=== PATIENT | female | born 1935 | race Caucasian/White ===

== ENCOUNTER 2019-01-29 13:22 | Emergency (ER) | payer OTHER ==
[~2019-01-29] VITALS: Ht 152.4 cm; Wt 63.5 kg
[2019-01-29] MEDS ORDERED: GLIMEPIRIDE4 MG (13:47)
[2019-01-29] MEDS ORDERED: ATORVASTATIN CA10 MG (13:48)
[2019-01-29] MEDS ORDERED: AMLODIPINE-OLM1 EAC2 (13:48)
[2019-01-29] MEDS ORDERED: ZESTRIL10 M1 (13:48)
== END 2019-01-30 00:14 | disposition home or self-care (01) ==
LOC: ER 13:22
DX: E87.1 Hypo-osmolality and hyponatremia (principal)

== ENCOUNTER 2019-07-09 15:34 | Emergency (ER) | payer OTHER ==
[~2019-07-09] VITALS: Ht 152.4 cm; Wt 54.4 kg
[~2019-07-09 15:34] MED LIST: AMLODIPINE-OLM1 EAC2; ATORVASTATIN CA10 MG; GLIMEPIRIDE4 MG; ZESTRIL10 M1
== END 2019-07-09 22:06 | disposition home or self-care (01) ==
LOC: ER 15:34
DX: S42.252A Displaced fracture of greater tuberosity of left humerus, initial encounter for closed fracture (principal); W18.39XA Other fall on same level, initial encounter; Y93.89 Activity, other specified; Y92.098 Other place in other non-institutional residence as the place of occurrence of the external cause; Y99.8 Other external cause status; E11.649 Type 2 diabetes mellitus with hypoglycemia without coma

== ENCOUNTER 2019-08-08 14:17 | Inpatient (IN) | payer OTHER ==
[~2019-08-08] VITALS: Ht 147.3 cm; Wt 49.9 kg
[2019-08-16] MEDS ORDERED: ATORVASTATIN CA10 MG PO (14:04)
[2019-08-16] MEDS ORDERED: LISINOPRIL10 MG PO (14:04)
[2019-08-16] MEDS ORDERED: VANCOMYCIN HCL125 MG PO (14:04)
[2019-08-16] MEDS ORDERED: INTESTINEX680 M1 PO (14:04)
[2019-08-16] MEDS ORDERED: CLONAZEPAM0.5 MG PO (14:04)
[2019-08-16] MEDS ORDERED: AMLODIPINE BESY10 MG PO (14:04)
[2019-08-16] MEDS ORDERED: GABAPENTIN300 MG PO (22:34)
== END 2019-08-16 16:37 | disposition home or self-care (01) | DRG 641 ==
LOC: ER 14:17 → SEC-K 22:41 → SURG 22:41
PROVIDERS: ADMIT Internal Medicine; ATTEND Internal Medicine
PROC: BW21ZZZ Computerized Tomography (CT Scan) of Abdomen and Pelvis (ICD-10-PCS; principal; 2019-08-08)
PROC: 8E0ZXY6 Isolation (ICD-10-PCS; 2019-08-08)
PROC: BP29ZZZ Computerized Tomography (CT Scan) of Left Shoulder (ICD-10-PCS; 2019-08-12)
DX: E87.1 Hypo-osmolality and hyponatremia (principal); S42.292A Other displaced fracture of upper end of left humerus, initial encounter for closed fracture; R65.10 Systemic inflammatory response syndrome (SIRS) of non-infectious origin without acute organ dysfunction; E86.0 Dehydration; J11.1 Influenza due to unidentified influenza virus with other respiratory manifestations; M62.58 Muscle wasting and atrophy, not elsewhere classified, other site; K44.9 Diaphragmatic hernia without obstruction or gangrene; E11.65 Type 2 diabetes mellitus with hyperglycemia; Z79.4 Long term (current) use of insulin

== ENCOUNTER 2019-08-29 10:41 | Inpatient (IN) | payer OTHER ==
[~2019-08-29] VITALS: Ht 157.5 cm; Wt 63.5 kg
[~2019-08-29 10:41] MED LIST changes: +AMLODIPINE BESY10 MG PO; +ATORVASTATIN CA10 MG PO; +CLONAZEPAM0.5 MG PO; +GABAPENTIN300 MG PO; +INTESTINEX680 M1 PO; +LISINOPRIL10 MG PO; +VANCOMYCIN HCL125 MG PO
[2019-08-29] MEDS ORDERED: NORVASC5 MG (10:49)
[2019-08-29] MEDS ORDERED: METFORMIN HCL500 M3 (10:50)
== END 2019-09-01 13:23 | disposition home or self-care (01) | DRG 638 ==
LOC: ER 10:41 → MEDI 20:03
PROVIDERS: ADMIT Internal Medicine; ATTEND Internal Medicine
DX: E11.649 Type 2 diabetes mellitus with hypoglycemia without coma (principal); E87.1 Hypo-osmolality and hyponatremia; I10 Essential (primary) hypertension; E11.42 Type 2 diabetes mellitus with diabetic polyneuropathy; E78.49 Other hyperlipidemia; D64.9 Anemia, unspecified; E86.0 Dehydration

== ENCOUNTER 2019-09-12 22:35 | Inpatient (IN) | payer OTHER ==
[~2019-09-12] VITALS: Ht 157.5 cm; Wt 63.5 kg
[~2019-09-12 22:35] MED LIST changes: +METFORMIN HCL500 M3; +NORVASC5 MG
== END 2019-09-21 17:52 | disposition home or self-care (01) | DRG 638 ==
LOC: ER 22:35 → SEC-K 09-13 14:16 → MEDI 09-13 14:16 → MEDJ 09-13 15:23 → MEDI 09-14 16:03 → MEDJ 09-15 12:56 → SURH 09-19 13:38
PROVIDERS: ADMIT Internal Medicine; ATTEND Internal Medicine
PROC: 30233N1 Transfusion of Nonautologous Red Blood Cells into Peripheral Vein, Percutaneous Approach (ICD-10-PCS; principal; 2019-09-20)
DX: E11.649 Type 2 diabetes mellitus with hypoglycemia without coma (principal); N39.0 Urinary tract infection, site not specified; E87.1 Hypo-osmolality and hyponatremia; R65.10 Systemic inflammatory response syndrome (SIRS) of non-infectious origin without acute organ dysfunction; E11.22 Type 2 diabetes mellitus with diabetic chronic kidney disease; E11.42 Type 2 diabetes mellitus with diabetic polyneuropathy; E86.0 Dehydration; I10 Essential (primary) hypertension; B96.89 Other specified bacterial agents as the cause of diseases classified elsewhere; D64.9 Anemia, unspecified; F41.9 Anxiety disorder, unspecified; E78.49 Other hyperlipidemia; K52.9 Noninfective gastroenteritis and colitis, unspecified; I12.9 Hypertensive chronic kidney disease with stage 1 through stage 4 chronic kidney disease, or unspecified chronic kidney disease; N18.2 Chronic kidney disease, stage 2 (mild); N17.9 Acute kidney failure, unspecified; Z79.84 Long term (current) use of oral hypoglycemic drugs

== ENCOUNTER 2019-09-23 17:04 | Inpatient (IN) | payer OTHER ==
[~2019-09-23] VITALS: Ht 152.4 cm; Wt 61.2 kg
[2019-09-24] MEDS ORDERED: LOSARTAN POTASS50 MG PO (08:14)
[2019-09-24] MEDS ORDERED: FLUDROCORTISON0.1 MG (08:14)
== END 2019-09-25 16:57 | disposition home or self-care (01) | DRG 690 ==
LOC: ER 17:04 → MEDI 23:53
PROVIDERS: ADMIT Internal Medicine; ATTEND Internal Medicine
PROC: BW21ZZZ Computerized Tomography (CT Scan) of Abdomen and Pelvis (ICD-10-PCS; principal; 2019-09-24)
PROC: BT43ZZZ Ultrasonography of Bilateral Kidneys (ICD-10-PCS; 2019-09-24)
DX: N39.0 Urinary tract infection, site not specified (principal); E87.1 Hypo-osmolality and hyponatremia; R33.8 Other retention of urine; E11.65 Type 2 diabetes mellitus with hyperglycemia; E11.42 Type 2 diabetes mellitus with diabetic polyneuropathy; I10 Essential (primary) hypertension

== ENCOUNTER 2019-10-02 10:08 | Emergency (ER) | payer OTHER ==
[~2019-10-02] VITALS: Ht 160 cm; Wt 63.5 kg
[~2019-10-02 10:08] MED LIST changes: +FLUDROCORTISON0.1 MG; +LOSARTAN POTASS50 MG PO
== END 2019-10-02 16:53 | disposition home or self-care (01) ==
LOC: ER 10:08
DX: R33.8 Other retention of urine (principal)

== ENCOUNTER 2019-11-01 11:21 | Inpatient (IN) | payer OTHER ==
[~2019-11-01] VITALS: Ht 157.5 cm; Wt 56.7 kg
[2019-11-02] MEDS ORDERED: PEPCID40 MG PO (06:31)
[2019-11-02] MEDS ORDERED: ZOFRAN4 MG PO (06:31)
[2019-11-06] MEDS ORDERED: LISINOPRIL5 MG PO (12:17)
[2019-11-06] MEDS ORDERED: INTESTINEX680 M1 PO (12:17)
[2019-11-06] MEDS ORDERED: Lipitor 10MG TABLET PO (12:17)
[2019-11-06] MEDS ORDERED: LEVAQUIN750 MG PO (12:17)
[2019-11-06] MEDS ORDERED: RESTORIL15 MG PO (12:17)
[2019-11-06] MEDS ORDERED: PEPCID40 MG PO (12:17)
== END 2019-11-06 18:43 | disposition home health service (06) | DRG 638 ==
LOC: ER 11:21 → MEDI 11-02 15:17 → SEC-K 11-02 15:17 → MEDI 11-02 23:57
PROVIDERS: ADMIT Internal Medicine; ATTEND Internal Medicine
DX: E11.649 Type 2 diabetes mellitus with hypoglycemia without coma (principal); E87.1 Hypo-osmolality and hyponatremia; E86.0 Dehydration; L89.151 Pressure ulcer of sacral region, stage 1; G30.9 Alzheimer's disease, unspecified; F02.80 Dementia in other diseases classified elsewhere, unspecified severity, without behavioral disturbance, psychotic disturbance, mood disturbance, and anxiety; D64.9 Anemia, unspecified; I12.9 Hypertensive chronic kidney disease with stage 1 through stage 4 chronic kidney disease, or unspecified chronic kidney disease; N18.9 Chronic kidney disease, unspecified; Z20.828 Contact with and (suspected) exposure to other viral communicable diseases; B96.89 Other specified bacterial agents as the cause of diseases classified elsewhere; Z79.84 Long term (current) use of oral hypoglycemic drugs; Z74.01 Bed confinement status